=== PATIENT | male | born 1935 | race Caucasian/White ===

== ENCOUNTER 2020-07-01 16:55 | Inpatient (IN) ==
[~2020-07-01 16:55] MED LIST: *HR* Atropine Sulfate 1 MG/10 ML SYRINGE IV ONE; *HR* EPINEPHrine 1 MG/10 ML SYRINGE IVP ONE; *HR* Etomidate 20 MG/10 ML AMPUL IVP ONE; *HR* Succinylcholine 200 MG/10 ML VIAL IVP ONE
[2020-07-01] MEDS ORDERED: *HR* FentaNYL (PF) 100 MCG/2 ML VIAL ONE (17:00)
[2020-07-01] MEDS ORDERED: *HR* EPINEPHrine 100 MCG/10 ML SYRINGE IVP ONE (17:12)
[2020-07-01] MEDS ORDERED: *HR* FentaNYL (PF) 1,000 MCG/20 ML VIAL ONE (17:15)
[2020-07-01] MEDS ORDERED: *HR* FentaNYL (PF) 100 MCG/2 ML VIAL IVP ONE (17:18)
[2020-07-01] MEDS: FentaNYL (PF) 1,000 MCG/100 ML IV.SOLN IVC SCH (17:28)
[2020-07-01] MEDS ORDERED: 0.9 % Sodium Chloride 1,000 ML IVC ONE (17:30)
[2020-07-01 17:34] LABS: Basophils # 0.1 K/mcL (0.0-0.2); Basophils % 0.6 %; Eosinophils # 0.4 K/mcL (0.0-0.6); Eosinophils % 3.3 %; Hematocrit 40.4 % (37.5-50.1); Hemoglobin 13.5 g/dL (12.9-16.9); Immature Granulocytes % 0.3 % (0-4); Lymphocytes # 1.8 K/mcL (0.6-4.6); Lymphocytes % 16.7 %; Mean Corpuscular HGB Conc 33.4 g/dL (31.6-35.5); Mean Corpuscular Hemoglobin 32.1 pg (28.0-33.3); Mean Platelet Volume 9.2 fL (9.4-12.4); Monocytes # 0.7 K/mcL (0.0-1.3); Monocytes % 6.6 %; Neutrophils # 7.7 K/mcL (1.6-8.9); Platelet Count 228 K/mcL (140-400); Red Blood Count 4.21 M/mcL (4.19-5.50); Red Cell Distribution Width 13.1 % (11.5-14.5); Segmented Neutrophils % 72.5 %; White Blood Count 10.6 K/mcL (4.3-11.1)
[2020-07-01 17:55] LABS: ABG Base Excess -5 mEq/L (-2 to 3); ABG HCO3 20 mEq/L (21-27); ABG Oxygen Saturation 100 % (95-98); ABG PCO2 35 mmHg (35-45); ABG PH 7.37 pH Units (7.32-7.45); ABG PO2 221 mmHg (85-104); ABG TCO2 21 mEq/L (20-26); Blood Gas Modality ASSIST CONTROL; Blood Gas VT 500 cc
[2020-07-01] MEDS ORDERED: Heparin 1,000 UNITS/500 mL 500 ML ONE ×2 (18:00→18:56)
[2020-07-01] MEDS ORDERED: 0.9 % Sodium Chloride 2,000 ML ONE (18:00)
[2020-07-01] MEDS ORDERED: ISOVUE-370 200 ML INFUS..BTL ONE ×2 (18:00→18:57)
[2020-07-01] MEDS ORDERED: Nitroglycerin 1,000 MCG/10 ML VIAL IV ONE (18:00)
[2020-07-01] MEDS ORDERED: *HR* Heparin 10,000 UNIT/10 ML VIAL ONE (18:00)
[2020-07-01] MEDS ORDERED: *HR* Heparin 5,000 UNIT/ML VIAL ONE (18:08)
[2020-07-01] MEDS ORDERED: *HR* Heparin 5,000 UNIT/ML VIAL IVP ONE (18:11)
[2020-07-01 18:13] LABS: INR 1.1; Prothrombin Time 12.6 Seconds (9.4-12.1)
[2020-07-01 18:16] LABS: Activated Partial Thrombo Time 26.6 Seconds (26.0-36.0)
[2020-07-01 18:18] LABS: Ethanol < 10 mg/dL (Less than 10); Thyroid Stimulating Hormone 1.877 mcIU/mL (0.340-5.600); Troponin I < 0.03 ng/mL (< 0.04)
[2020-07-01] MEDS: EPINEPHrine 5 MG in D5% in Water 250 ML IVC SCH (18:25)
[2020-07-01] MEDS ORDERED: Perflutren Lipid Microsphere 1.3 ML in 0.9 % Sodium Chloride 8.7 ML IVP PRN (18:54)
[2020-07-01] MEDS ORDERED: Tirofiban 12.5 MG/250ML 12.5 MG/250 ML BAG ONE (18:54)
[2020-07-01 19:22] LABS: Alanine Aminotransferase 12 Units/L (7-52); Albumin 4.3 g/dL (3.5-5.7); Albumin/Globulin Ratio 1.6 (1.1-2.2); Alkaline Phosphatase 55 Units/L (34-104); Aspartate Amino Transferase 22 Units/L (13-39); BUN/Creatinine Ratio 11 (6-26); Bilirubin,Direct 0.1 mg/dL (0.0-0.2); Bilirubin,Indirect 0.5 mg/dL (0.0-1.0); Bilirubin,Total 0.6 mg/dL (0.3-1.0); Blood Urea Nitrogen 15 mg/dL (8-23); Calcium 9.5 mg/dL (8.6-10.3); Carbon Dioxide 22 mEq/L (23-29); Chloride 99 mEq/L (98-107); Creatine Kinase 66 Units/L (30-223); Globulin 2.7 g/dL (2.4-3.5); Glucose 169 mg/dL (70-105); Magnesium 2.6 mg/dL (1.6-2.6); Osmolality,Calculated 277 (280-300); Sodium 131 mEq/L (136-145); eGFR For African Americans > 60 (> 60); eGFR For Non-African Americans 51 (> 60)
[2020-07-01] MEDS ORDERED: Tirofiban 12.5 MG/250ML 12.5 MG/250 ML BAG IVC SCH (19:45)
[2020-07-01] MEDS ORDERED: Artificial Tears SOLN 15 ML BOTTLE BOTH EYES PRN (20:11)
[2020-07-01 20:27] LABS: ABG Base Excess -3 mEq/L (-2 to 3); ABG HCO3 22 mEq/L (21-27); ABG Oxygen Saturation 100 % (95-98); ABG PCO2 37 mmHg (35-45); ABG PH 7.37 pH Units (7.32-7.45); ABG PO2 355 mmHg (85-104); ABG TCO2 23 mEq/L (20-26); Blood Gas VT 500 cc
[2020-07-01 20:43] LABS: VBG Ionized Calcium 1.14 mmol/L (1.15-1.35)
[2020-07-01 20:43] LABS: Basophils # 0.1 K/mcL (0.0-0.2); Basophils % 0.4 %; Eosinophils # 0.2 K/mcL (0.0-0.6); Hematocrit 39.2 % (37.5-50.1); Hemoglobin 13.4 g/dL (12.9-16.9); Immature Granulocytes % 0.6 % (0-4); Lymphocytes # 1.5 K/mcL (0.6-4.6); Lymphocytes % 9.5 %; Mean Corpuscular HGB Conc 34.2 g/dL (31.6-35.5); Mean Corpuscular Hemoglobin 31.8 pg (28.0-33.3); Mean Corpuscular Volume 93.1 fL (83.0-100.0); Mean Platelet Volume 9.4 fL (9.4-12.4); Monocytes # 1.3 K/mcL (0.0-1.3); Monocytes % 8.3 %; Neutrophils # 12.3 K/mcL (1.6-8.9); Platelet Count 321 K/mcL (140-400); Red Blood Count 4.21 M/mcL (4.19-5.50); Red Cell Distribution Width 13.1 % (11.5-14.5); Segmented Neutrophils % 80.2 %; White Blood Count 15.3 K/mcL (4.3-11.1)
[2020-07-01 21:02] LABS: Albumin 4.5 g/dL (3.5-5.7); Albumin/Globulin Ratio 1.8 (1.1-2.2); Bilirubin,Direct 0.2 mg/dL (0.0-0.2); Bilirubin,Indirect 0.9 mg/dL (0.0-1.0); Bilirubin,Total 1.1 mg/dL (0.3-1.0); Calcium 9.1 mg/dL (8.6-10.3); Globulin 2.5 g/dL (2.4-3.5); Magnesium 1.8 mg/dL (1.6-2.6); Potassium 4.9 mEq/L (3.5-5.1)
[2020-07-01] MEDS: *HR* Ticagrelor 90 MG TABLET PO SCH (21:06)
[2020-07-01] MEDS: Chlorhexidine Rinse 15 ML MOUTHWASH MM SCH (21:35)
[2020-07-01 21:59] LABS: Bilirubin,Urine Negative (Negative); Blood,Urine Negative (Negative); Clarity,Urine Clear (Clear); Color,Urine Light-Yellow (Yellow); Glucose,Urine (UA) Normal (Normal); Ketones,Urine Negative (Negative); Leukocyte Esterase,Urine Negative (Negative); Nitrite,Urine Negative (Negative); PH,Urine 6.5 pH Units (5.0-8.0); Protein,Urine Trace mg/dL (Neg-Trace); Specific Gravity,Urine > 1.030 (1.010-1.025); Urobilinogen,Urine Normal (Normal)
[2020-07-01] MEDS ORDERED: Vecuronium 50 MG in 0.9 % Sodium Chloride 200 ML IVC SCH (22:00)
[2020-07-01] MEDS ORDERED: *HR* Midazolam HCl 5 MG/5 ML VIAL IVP ONE ×2 (22:26)
[2020-07-01] MEDS: Midazolam HCl 50 MG/100 ML IV.SOLN IVC SCH (22:40)
[2020-07-01] MEDS ORDERED: 0.9 % Sodium Chloride 1,000 ML ONE (23:05)
[2020-07-01] MEDS ORDERED: *HR* Dextrose 50 % in Water (Vial) 50 ML VIAL IVP PRN (23:11)
[2020-07-01] MEDS ORDERED: Dextrose Gel 15 GM/37.5 ML TUBE PO PRN ×2 (23:11)
[2020-07-01] MEDS ORDERED: D5% in Water 1,000 ML IVC PRN (23:11)
[2020-07-02 00:33] LABS: VBG HCO3 23 mEq/L (21-27); VBG Ionized Calcium 1.16 mmol/L (1.15-1.35); VBG PCO2 39 mmHg (41-51); VBG PH 7.39 pH Units (7.32-7.42); VBG PO2 73 mmHg (25-50)
[2020-07-02 00:39] LABS: INR 1.1; Prothrombin Time 12.3 Seconds (9.4-12.1)
[2020-07-02 00:41] LABS: Activated Partial Thrombo Time 25.9 Seconds (26.0-36.0)
[2020-07-02 00:42] LABS: Calcium 8.7 mg/dL (8.6-10.3); Magnesium 2.2 mg/dL (1.6-2.6); Phosphorous 1.6 mg/dL (2.7-4.5); Potassium 4.1 mEq/L (3.5-5.1)
[2020-07-02] MEDS: Artificial Tears SOLN 15 ML BOTTLE BOTH EYES SCH ×6 (01:06→20:48)
[2020-07-02] MEDS: FentaNYL (PF) 1,000 MCG/100 ML IV.SOLN IVC SCH ×4 (01:10→22:45)
[2020-07-02] MEDS ORDERED: 0.9 % Sodium Chloride 1,000 ML IVC SCH (01:45)
[2020-07-02 01:52] LABS: Amphetamine Screen,Urine Negative ng/mL (Cutoff=1000); Barbiturate Screen,Urine Negative ng/mL (Cutoff=200); Benzodiazepines Screen,Urine Positive ng/mL (Cutoff=200); Cannabinoid Screen,Urine Negative ng/mL (Cutoff = 50); Cocaine Screen,Urine Negative ng/mL (Cutoff= 300); Opiate Screen,Urine Positive ng/mL (Cutoff=300); Phencyclidine Screen,Urine Negative ng/mL (Cutoff=25)
[2020-07-02 04:34] LABS: Hematocrit 35.5 % (37.5-50.1); Hemoglobin 12.3 g/dL (12.9-16.9)
[2020-07-02 04:51] LABS: BUN/Creatinine Ratio 15 (6-26); Blood Urea Nitrogen 17 mg/dL (8-23); eGFR For African Americans > 60 (> 60); eGFR For Non-African Americans > 60 (> 60)
[2020-07-02 04:55] LABS: Troponin I 0.47 ng/mL (< 0.04)
[2020-07-02 05:02] LABS: ABG Base Excess -3 mEq/L (-2 to 3); ABG HCO3 21 mEq/L (21-27); ABG Oxygen Saturation 100 % (95-98); ABG PCO2 32 mmHg (35-45); ABG PH 7.42 pH Units (7.32-7.45); ABG PO2 186 mmHg (85-104); ABG TCO2 22 mEq/L (20-26); Blood Gas Modality AF; Blood Gas VT 500 cc
[2020-07-02 05:48] LABS: VBG HCO3 21 mEq/L (21-27); VBG PCO2 37 mmHg (41-51); VBG PH 7.36 pH Units (7.32-7.42); VBG PO2 135 mmHg (25-50)
[2020-07-02 06:09] LABS: BUN/Creatinine Ratio 14 (6-26); Blood Urea Nitrogen 18 mg/dL (8-23); Calcium 8.9 mg/dL (8.6-10.3); Carbon Dioxide 21 mEq/L (23-29); Chloride 98 mEq/L (98-107); Glucose 184 mg/dL (70-105); Osmolality,Calculated 279 (280-300); Potassium 3.8 mEq/L (3.5-5.1); Sodium 131 mEq/L (136-145); eGFR For African Americans > 60 (> 60); eGFR For Non-African Americans 54 (> 60)
[2020-07-02] MEDS: Chlorhexidine Rinse 15 ML MOUTHWASH MM SCH ×2 (07:55→20:48)
[2020-07-02] MEDS: Pantoprazole 40 MG VIAL IVP SCH (07:55)
[2020-07-02] MEDS: *HR* Ticagrelor 90 MG TABLET PO SCH ×2 (07:56→20:48)
[2020-07-02 08:03] LABS: Basophils % 0.3 %; Eosinophils % 0.2 %; Hematocrit 34.5 % (37.5-50.1); Hemoglobin 11.9 g/dL (12.9-16.9); Immature Granulocytes % 0.4 % (0-4); Lymphocytes # 1.2 K/mcL (0.6-4.6); Lymphocytes % 10.4 %; Mean Corpuscular HGB Conc 34.5 g/dL (31.6-35.5); Mean Corpuscular Hemoglobin 31.6 pg (28.0-33.3); Mean Corpuscular Volume 91.5 fL (83.0-100.0); Mean Platelet Volume 9.5 fL (9.4-12.4); Monocytes # 1.3 K/mcL (0.0-1.3); Monocytes % 10.5 %; Neutrophils # 9.3 K/mcL (1.6-8.9); Platelet Count 238 K/mcL (140-400); Red Blood Count 3.77 M/mcL (4.19-5.50); Segmented Neutrophils % 78.2 %; White Blood Count 11.9 K/mcL (4.3-11.1)
[2020-07-02 08:27] LABS: Magnesium 2.9 mg/dL (1.6-2.6); Phosphorous 2.6 mg/dL (2.7-4.5)
[2020-07-02] MEDS: Cisatracurium 200 MG in 0.9 % Sodium Chloride 180 ML IVC SCH (09:18)
[2020-07-02] MEDS: Aspirin 81 MG TAB.CHEW PO SCH (09:21)
[2020-07-02] MEDS: Norepinephrine 4 MG/254 ML IV.SOLN IVC SCH ×2 (11:40→15:19)
[2020-07-02 13:24] LABS: VBG HCO3 24 mEq/L (21-27); VBG Ionized Calcium 1.18 mmol/L (1.15-1.35); VBG PCO2 41 mmHg (41-51); VBG PH 7.37 pH Units (7.32-7.42); VBG PO2 47 mmHg (25-50)
[2020-07-02 13:26] LABS: Basophils % 0.3 %; Eosinophils % 0.5 %; Hematocrit 36.3 % (37.5-50.1); Hemoglobin 12.7 g/dL (12.9-16.9); Immature Granulocytes % 0.4 % (0-4); Lymphocytes % 13.1 %; Mean Corpuscular Hemoglobin 32.2 pg (28.0-33.3); Mean Corpuscular Volume 91.9 fL (83.0-100.0); Mean Platelet Volume 9.5 fL (9.4-12.4); Monocytes # 0.6 K/mcL (0.0-1.3); Monocytes % 7.6 %; Neutrophils # 5.9 K/mcL (1.6-8.9); Platelet Count 184 K/mcL (140-400); Red Blood Count 3.95 M/mcL (4.19-5.50); Red Cell Distribution Width 13.1 % (11.5-14.5); Segmented Neutrophils % 78.1 %; White Blood Count 7.5 K/mcL (4.3-11.1)
[2020-07-02 13:46] LABS: Alanine Aminotransferase 13 Units/L (7-52); Albumin/Globulin Ratio 1.7 (1.1-2.2); Alkaline Phosphatase 62 Units/L (34-104); Aspartate Amino Transferase 15 Units/L (13-39); BUN/Creatinine Ratio 16 (6-26); Bilirubin,Direct 0.1 mg/dL (0.0-0.2); Bilirubin,Indirect 0.4 mg/dL (0.0-1.0); Bilirubin,Total 0.5 mg/dL (0.3-1.0); Blood Urea Nitrogen 17 mg/dL (8-23); Calcium 9.2 mg/dL (8.6-10.3); Carbon Dioxide 23 mEq/L (23-29); Chloride 99 mEq/L (98-107); Globulin 2.3 g/dL (2.4-3.5); Glucose 132 mg/dL (70-105); Magnesium 2.6 mg/dL (1.6-2.6); Osmolality,Calculated 277 (280-300); Phosphorous 3.1 mg/dL (2.7-4.5); Potassium 3.8 mEq/L (3.5-5.1); Sodium 132 mEq/L (136-145); Total Protein 6.3 g/dL (6.4-8.9); eGFR For African Americans > 60 (> 60); eGFR For Non-African Americans > 60 (> 60)
[2020-07-02] MEDS: 0.9 % Sodium Chloride 500 ML IVC SCH (13:59)
[2020-07-02] MEDS ORDERED: Potassium Chloride Elixir 20 MEQ/15 ML UDC GTUBE ONE (14:00)
[2020-07-02] MEDS: EPINEPHrine 5 MG in D5% in Water 250 ML IVC SCH (17:47)
[2020-07-02 18:46] LABS: Basophils % 0.3 %; Eosinophils # 0.1 K/mcL (0.0-0.6); Eosinophils % 1.4 %; Hemoglobin 12.1 g/dL (12.9-16.9); Immature Granulocytes % 0.5 % (0-4); Lymphocytes % 13.1 %; Mean Corpuscular HGB Conc 34.6 g/dL (31.6-35.5); Mean Corpuscular Hemoglobin 32.2 pg (28.0-33.3); Mean Corpuscular Volume 93.1 fL (83.0-100.0); Mean Platelet Volume 9.3 fL (9.4-12.4); Monocytes # 0.6 K/mcL (0.0-1.3); Monocytes % 7.9 %; Neutrophils # 5.9 K/mcL (1.6-8.9); Platelet Count 190 K/mcL (140-400); Red Blood Count 3.76 M/mcL (4.19-5.50); Segmented Neutrophils % 76.8 %; White Blood Count 7.7 K/mcL (4.3-11.1)
[2020-07-02 18:54] LABS: VBG Ionized Calcium 1.18 mmol/L (1.15-1.35)
[2020-07-02 19:01] LABS: BUN/Creatinine Ratio 19 (6-26); Blood Urea Nitrogen 17 mg/dL (8-23); Calcium 8.7 mg/dL (8.6-10.3); Carbon Dioxide 24 mEq/L (23-29); Chloride 100 mEq/L (98-107); Glucose 98 mg/dL (70-105); Magnesium 2.5 mg/dL (1.6-2.6); Osmolality,Calculated 278 (280-300); Phosphorous 2.7 mg/dL (2.7-4.5); Potassium 3.9 mEq/L (3.5-5.1); Sodium 133 mEq/L (136-145); eGFR For African Americans > 60 (> 60); eGFR For Non-African Americans > 60 (> 60)
[2020-07-02 19:02] LABS: Albumin 3.6 g/dL (3.5-5.7); Albumin/Globulin Ratio 1.8 (1.1-2.2); Bilirubin,Direct 0.1 mg/dL (0.0-0.2); Bilirubin,Indirect 0.4 mg/dL (0.0-1.0); Bilirubin,Total 0.5 mg/dL (0.3-1.0); Total Protein 5.6 g/dL (6.4-8.9)
[2020-07-03 00:25] LABS: ABG Ionized Calcium 0.99 mmol/L (1.15-1.35)
[2020-07-03 00:31] LABS: Basophils % 0.4 %; Eosinophils # 0.2 K/mcL (0.0-0.6); Eosinophils % 2.3 %; Hemoglobin 11.2 g/dL (12.9-16.9); Immature Granulocytes % 0.1 % (0-4); Lymphocytes # 1.1 K/mcL (0.6-4.6); Lymphocytes % 15.9 %; Mean Corpuscular Hemoglobin 31.7 pg (28.0-33.3); Mean Corpuscular Volume 90.7 fL (83.0-100.0); Mean Platelet Volume 9.5 fL (9.4-12.4); Monocytes # 0.6 K/mcL (0.0-1.3); Monocytes % 8.1 %; Neutrophils # 5.1 K/mcL (1.6-8.9); Platelet Count 168 K/mcL (140-400); Red Blood Count 3.53 M/mcL (4.19-5.50); Red Cell Distribution Width 13.2 % (11.5-14.5); Segmented Neutrophils % 73.2 %
[2020-07-03] MEDS: Artificial Tears SOLN 15 ML BOTTLE BOTH EYES SCH ×3 (00:33→09:23)
[2020-07-03 00:39] LABS: Albumin 3.5 g/dL (3.5-5.7); Albumin/Globulin Ratio 1.7 (1.1-2.2); Bilirubin,Direct 0.1 mg/dL (0.0-0.2); Bilirubin,Indirect 0.5 mg/dL (0.0-1.0); Bilirubin,Total 0.6 mg/dL (0.3-1.0); Globulin 2.1 g/dL (2.4-3.5); Total Protein 5.6 g/dL (6.4-8.9)
[2020-07-03 00:40] LABS: BUN/Creatinine Ratio 22 (6-26); Blood Urea Nitrogen 16 mg/dL (8-23); Calcium 8.6 mg/dL (8.6-10.3); Carbon Dioxide 21 mEq/L (23-29); Chloride 102 mEq/L (98-107); Glucose 104 mg/dL (70-105); Magnesium 2.3 mg/dL (1.6-2.6); Osmolality,Calculated 277 (280-300); Phosphorous 2.5 mg/dL (2.7-4.5); Potassium 3.6 mEq/L (3.5-5.1); Sodium 133 mEq/L (136-145); eGFR For African Americans > 60 (> 60); eGFR For Non-African Americans > 60 (> 60)
[2020-07-03] MEDS: 0.9 % Sodium Chloride 500 ML IVC SCH ×2 (01:04→07:23)
[2020-07-03 02:11] LABS: ABG Ionized Calcium 1.12 mmol/L (1.15-1.35)
[2020-07-03 02:31] LABS: BUN/Creatinine Ratio 21 (6-26); Blood Urea Nitrogen 16 mg/dL (8-23); Calcium 8.8 mg/dL (8.6-10.3); Carbon Dioxide 21 mEq/L (23-29); Chloride 102 mEq/L (98-107); Glucose 99 mg/dL (70-105); Magnesium 2.1 mg/dL (1.6-2.6); Osmolality,Calculated 275 (280-300); Phosphorous 2.6 mg/dL (2.7-4.5); Potassium 3.5 mEq/L (3.5-5.1); Sodium 132 mEq/L (136-145); eGFR For African Americans > 60 (> 60); eGFR For Non-African Americans > 60 (> 60)
[2020-07-03] MEDS: FentaNYL (PF) 1,000 MCG/100 ML IV.SOLN IVC SCH ×2 (04:53→09:49)
[2020-07-03 05:03] LABS: ABG Base Excess -1 mEq/L (-2 to 3); ABG HCO3 22 mEq/L (21-27); ABG Oxygen Saturation 98 % (95-98); ABG PCO2 32 mmHg (35-45); ABG PH 7.45 pH Units (7.32-7.45); ABG PO2 90 mmHg (85-104); ABG TCO2 23 mEq/L (20-26); Blood Gas VT 500 cc
[2020-07-03 05:30] LABS: ABG Ionized Calcium 1.12 mmol/L (1.15-1.35)
[2020-07-03 05:42] LABS: Basophils # 0.1 K/mcL (0.0-0.2); Basophils % 0.4 %; Eosinophils # 0.3 K/mcL (0.0-0.6); Eosinophils % 2.6 %; Hematocrit 35.6 % (37.5-50.1); Hemoglobin 12.2 g/dL (12.9-16.9); Immature Granulocytes % 0.5 % (0-4); Lymphocytes # 1.6 K/mcL (0.6-4.6); Lymphocytes % 12.5 %; Mean Corpuscular HGB Conc 34.3 g/dL (31.6-35.5); Mean Corpuscular Hemoglobin 31.9 pg (28.0-33.3); Mean Platelet Volume 9.7 fL (9.4-12.4); Monocytes # 1.1 K/mcL (0.0-1.3); Monocytes % 8.3 %; Neutrophils # 9.7 K/mcL (1.6-8.9); Platelet Count 251 K/mcL (140-400); Red Blood Count 3.83 M/mcL (4.19-5.50); Red Cell Distribution Width 13.2 % (11.5-14.5); Segmented Neutrophils % 75.7 %; White Blood Count 12.8 K/mcL (4.3-11.1)
[2020-07-03 06:22] LABS: BUN/Creatinine Ratio 20 (6-26); Blood Urea Nitrogen 17 mg/dL (8-23); Calcium 8.6 mg/dL (8.6-10.3); Carbon Dioxide 22 mEq/L (23-29); Chloride 102 mEq/L (98-107); Glucose 106 mg/dL (70-105); Magnesium 2.1 mg/dL (1.6-2.6); Osmolality,Calculated 278 (280-300); Phosphorous 2.8 mg/dL (2.7-4.5); Potassium 3.6 mEq/L (3.5-5.1); Sodium 133 mEq/L (136-145); eGFR For African Americans > 60 (> 60); eGFR For Non-African Americans > 60 (> 60)
[2020-07-03] MEDS: Midazolam HCl 50 MG/100 ML IV.SOLN IVC SCH ×2 (07:22→09:24)
[2020-07-03] MEDS: Cisatracurium 200 MG in 0.9 % Sodium Chloride 180 ML IVC SCH (07:29)
[2020-07-03] MEDS: Pantoprazole 40 MG VIAL IVP SCH (09:27)
[2020-07-03] MEDS: Aspirin 81 MG TAB.CHEW PO SCH (09:27)
[2020-07-03] MEDS: Chlorhexidine Rinse 15 ML MOUTHWASH MM SCH (09:27)
[2020-07-03] MEDS: *HR* Ticagrelor 90 MG TABLET PO SCH (09:28)
[2020-07-03] MEDS: Norepinephrine 4 MG/254 ML IV.SOLN IVC SCH (09:49)
[2020-07-03] MEDS ORDERED: 0.9 % Sodium Chloride 1,000 ML IVC SCH (10:00)
[2020-07-03 11:10] VITALS: BP 169/73
== END 2020-07-03 11:50 | disposition short-term general hospital (02) | DRG 246 ==
LOC: EMEROOARM 16:55 → ICNU 18:26
PROVIDERS: ADMIT Internal Medicine Cardiovascular Disease; ATTEND Internal Medicine Cardiovascular Disease